=== PATIENT | female | born 1950 ===

== ENCOUNTER → 2017-11-05 | Outpatient (CLI) | payer MEDICARE, MEDICAID ==
[2017-05-20 10:28] VITALS: BMI 45.0
[~2017-11-05] MED LIST: ALB18R INH; ALBU8.5H IH; AMIO200T47 PO; AMOX1TAB8 PO; ATOR20TA65 PO; BENZ100C4 PO; CALC-515 PO; CARV25TA78 PO; CHOL10005 PO; DIPH0.5D12 IM; ESOM40CA42 PO; FLU60SYR30 IM ONLY; FLUT100D IH; FLUT1DIS27 IH; FLUT9.9S; FURO-45 PO; FURO20TA19 PO; GLUC100026 PO; GOLYTE PO; HYDR-4308 PO; HYDR12.556 PO; HYDR12.561 PO; Hospital Bed; IBUP200C74 PO; INSU100V24 SQ; LACT1CAP12 PO; LANI SUBQ; LEVI SUBQ; MELA5TAB6 PO; METF-410 PO; MOMR ENA; MULT-813 PO; MUPI15CR10 TP; OXYGENHOME INH; PANT20TA27 PO; PEN1DIS.48; PNEU0.5D3 IM; POLY17PO25 PO; POTA20TA94 PO; PRED-1 PO; PRED20TA6 PO; RIVA20TA PO; TIO18R INH; TRIA5T TOP; UMEC62.5 INH; VAL80 PO; VALS160T22 PO; VENL75CA4 PO; VENL75CA58 PO; [UNRECOGNIZED DRUG - OTHER]; [UNRECOGNIZED DRUG - OTHER] MC
== END ==
LOC: LAB 08:57
PROVIDERS: ATTEND Internal Medicine Cardiovascular Disease
DX: I42.0 Dilated cardiomyopathy (principal); E11.9 Type 2 diabetes mellitus without complications; E66.9 Obesity, unspecified
CPT/HCPCS: 36415; 82310; 82374; 82435; 82465; 82565; 82947; 83718; 84132; 84295; 84478; 84520

== ENCOUNTER → 2017-11-06 | Outpatient (CLI) | payer MEDICARE, MEDICAID ==
[2017-05-20 10:28] VITALS: BMI 45.0
--- NOTE | 2017-11-08 17:30 | RADIOLOGY IMAGING REPORT ---
FACILITY: [facility] [place] PATIENT NAME: KALIN CRAFT : [id number] MR: [id number] V: [id number] EXAM DATE: ORDERING PHYSICIAN: TERRA DRUMMOND TECHNOLOGIST: Godwin Easton PROCEDURE: ECHOCARDIOGRAM 2 D LIMITED WITH CONTRAST COMPARISON: None. INDICATIONS: NONISCHEMIC CARDIOMYOPATHY 2D Measurements (normal values in centimeters) LV endLV endRV endVent.LV PostAorticLeftPercent DiastolicSystolicDiastolicSeptumWallRootAtriumShortening (3.5-5.7)(0.9-2.6)(0.6-1.1)(0.6-1.1)(2.0-3.7)(1.9-4.0)(25-35%) NotNot [id number]% STROKE VOLUME: 38 mL ESTIMATED EJECTION FRACTION:37% PARASTERNAL LONG AXIS: Left ventricular systolic function appears to be decreased. The right ventricular function appears to be normal. The TAPSE is measured within normal range at 2.4. Color examination of the valves reveals a trace of mitral and tricuspid insufficiency present. PARASTERNAL SHORT AXIS: Overall left ventricular function again appears to be decreased. Some akinesis along the posterior inferior wall. Aortic valve was trileaflet in configuration and appears to open normally. Trace of tricuspid insufficiency is noted. APICAL FOUR AND TWO CHAMBER: Again, decreased left ventricular systolic function. Hypokinesis to akinesis along a portion of the interventricular septum as well as the apex of the left ventricle. Right atrial and left atrial volumes measure within normal ranges. DEFINITY contrast was then used. There was akinesis at the apex of the left ventricle, hypokinesis along the septal wall. There is also hypokinesis along the inferior posterior wall. Some akinesis along that wall as well. Doppler examination of the mitral valve in diastole does reveal the A wave greater than the E wave. OVERALL IMPRESSION: 1. Significantly decreased left ventricular ejection fraction of approximately 37%. There appears to be hypokinesis along the interventricular septum and akinesis along a portion of the inferior posterior wall and akinesis of the apex of the left ventricle. Anterior wall also appears to be hypokinetic 2. A grade 1/4 decrease in diastolic function. 3. A trace of mitral and tricuspid insufficiency with estimated right ventricular systolic pressure within normal range. 4. In comparison to the examination done on 08/21/17, left ventricular systolic function has slightly increased from 30 to 37%. Left ventricle size has also mildly decreased since that echocardiograph. Right atrial volume is also significantly decreased. Dictated by: Judson Brady M.D. on 11/06/2017 at 18:24 Transcribed by: FRANK on 11/06/2017 at 18:40 Approved by: Judson Brady M.D. on 11/08/2017 at 17:29 [facility]
== END ==
LOC: US 02:09
PROVIDERS: ATTEND Internal Medicine Clinical Cardiac Electrophysiology
DX: Q21.0 Ventricular septal defect (principal); I34.0 Nonrheumatic mitral (valve) insufficiency; I07.1 Rheumatic tricuspid insufficiency
CPT/HCPCS: C8924; Q9957

== ENCOUNTER → 2017-12-11 | Outpatient (CLI) | payer MEDICARE, MEDICAID ==
[2017-05-20 10:28] VITALS: BMI 45.0
[~2017-12-11] MED LIST changes: +DULO30CA6 PO; +VENL37.53 PO
[2017-12-11 11:39] LABS: PLATELET COUNT, AUTOMATED 250 K/uL (150-450)
[2017-12-11 11:56] LABS: LDL CHOLESTEROL 94 mg/dl
== END ==
LOC: LAB 11:11
PROVIDERS: ATTEND Nurse Practitioner Family
DX: I50.9 Heart failure, unspecified (principal); I25.10 Atherosclerotic heart disease of native coronary artery without angina pectoris; J44.9 Chronic obstructive pulmonary disease, unspecified; E11.9 Type 2 diabetes mellitus without complications
CPT/HCPCS: 36415; 82040; 82247; 82310; 82374; 82435; 82465; 82565; 82947; 83036; 83718; 83880; 84075; 84132; 84155; 84295; 84439; 84443; 84450; 84460; 84478; 84480; 84520; 85025

== ENCOUNTER → 2017-12-27 | Outpatient (CLI) | payer MEDICARE, MEDICAID ==
[2017-05-20 10:28] VITALS: BMI 45.0
--- NOTE | 2017-12-27 16:05 | RADIOLOGY IMAGING REPORT ---
FACILITY: [facility] PATIENT NAME: Umberto Elizondo : 1950 MR: [id number] V: [id number] EXAM DATE: ORDERING PHYSICIAN: VILMA TORREZ TECHNOLOGIST: Location: [facility] Patient: Umberto Elizondo : 1950 Visit/Account:[id number] Date of Sevice: 12/27/2017 DEXA Scan Clinical history: screening. Comparison: None. LUMBAR SPINE: The bone mineral density (BMD) measured from L1-L4 correlates with a Z-score of 1.2 and a T-score of 0.6 which is within normal limits as defined by the World Health Organization. The corresponding ris k of fracture in the lumbar spine is not increased compared with a young adult reference population. HIP: Bone mineral density (BMD) measured in the Left total hip region correlates with a Z-score of 1.1 and a T-score of 0.4. The T-score of the femoral neck is -0.7. The lower of the two T score s is within normal limits which is defined as defined by the World Health Organization. The corres ponding risk of fracture in the hip is not increased compared with a young adult reference population . Bone mineral density (BMD) measured in the Left Femoral Neck region measures 0.939 g/cm?. Impression: 1. Lumbar spine: Normal. 2. Left Total Hip: Normal. The next DEXA scan of this patient should include the following sites: L1-L4 and Left hip. FRAX? WHO Fracture Risk Assessment Tool link: <http://www.shef.ac.uk/FRAX/tool.jsp?locationValue=9> PLEASE NOTE: 1) The World Health Organization defines low BMD as follows: T-score Normal > -1 Osteopenia < -1 and > -2.5 Osteoporosis < -2.5 without fractures Established osteoporosis < -2.5 with fractures 2) In general, you may wish to consider: Diagnosis Treatment Follow-up DEXA Normal BMD Prevention 2-3 years Osteopenia Prevention/therapy 1-2 years Osteoporosis Therapy Yearly 3) Fracture risk estimated from the T-score is more accurate for vertebral fractures (often spontane ous) than for hip fractures. Report Dictated By: Go Yi MD at 12/27/2017 3:59 PM Report E-Signed By: Go Yi MD at 12/27/2017 4:01 PM WSN:[id number]
--- NOTE | 2017-12-27 16:25 | RADIOLOGY IMAGING REPORT ---
FACILITY: [facility] [place] PATIENT NAME: KALIN CRAFT : [id number] MR: [id number] V: [id number] EXAM DATE: [id number] ORDERING PHYSICIAN: VILMA TORREZ TECHNOLOGIST: Rachael Bell PROCEDURE:BILATERAL DIGITAL SCREENING MAMMOGRAM WITH CAD ASSISTED INTERPRETATION & 3D TOMOSYNTHESIS COMPARISON:Prior mammograms 01/14/16 INDICATIONS:SCREENING FINDINGS: Scattered fibroglandular tissue. Within the Left lower breast on MLO view 5.5cm deep to the nipple there is a new asymmetry. An equivocal correlative asymmetry just medial to the nipple line on the CC view at posterior depth. An alternative potential correlative asymmetry in the more inner Left breast at middle depth also noted on CC view. The breasts are otherwise unremarkable and unchanged. IMPRESSION: BIRADS 0: Needs additional imaging. Spot compression views Left breast, strait lateral view Left breast and Left breast Ultrasound as needed recommended for further evaluation. Dictated by: Bryce Mendieta on 12/27/2017 at 12:16 Transcribed by: ERIN on 12/27/2017 at 13:30 Approved by: Brcye Mendieta on 12/27/2017 at 16:24 [facility]
== END ==
LOC: MAMO 12-20 01:05
PROVIDERS: ATTEND Nurse Practitioner Family
DX: Z13.820 Encounter for screening for osteoporosis (principal); Z12.31 Encounter for screening mammogram for malignant neoplasm of breast; R92.8 Other abnormal and inconclusive findings on diagnostic imaging of breast; Z78.0 Asymptomatic menopausal state
CPT/HCPCS: 77063; 77067; 77080

== ENCOUNTER → 2018-01-16 | Outpatient (CLI) | payer MEDICARE, MEDICAID ==
[2017-05-20 10:28] VITALS: BMI 45.0
--- NOTE | 2018-01-17 14:01 | RADIOLOGY IMAGING REPORT ---
FACILITY: [facility] PATIENT NAME: KALIN CRAFT : [id number] MR: [id number] V: [id number] EXAM DATE: ORDERING PHYSICIAN: VILMA TORREZ TECHNOLOGIST: Bernarda Hernandez PROCEDURE:LEFT DIGITAL DIAGNOSTIC MAMMOGRAM WITH CAD ASSISTED INTERPRETATION & 3D TOMOSYNTHESIS COMPARISON:Prior mammograms 12/27/17, 01/14/16. INDICATIONS:FURTHER EVAL FINDINGS: Patient received a Spot compression view of Left CC and MLO projection and medial lateral view of the Left breast. The focal asymmetries seen in the inferior and medial portion of Left breast appear fairly compressible and apparently represented summation shadow. There was no demonstration of malignant appearing mass, or calcification Left breast. DIAGNOSTIC CATEGORY 2--BENIGN FINDING. RECOMMENDATIONS: ROUTINE MAMMOGRAM AND CLINICAL EVALUATION. IMPRESSION: BIRADS 2: Benign finding No significant abnormality is seen. Dictated by: Mile Griggs M.D. on 01/16/2018 at 17:10 Transcribed by: ERIN on 01/17/2018 at 9:49 Approved by: Mile Griggs M.D. on 01/17/2018 at 14:00 [facility]
== END ==
LOC: MAMO 01:00
PROVIDERS: ATTEND Nurse Practitioner Family
DX: R92.8 Other abnormal and inconclusive findings on diagnostic imaging of breast (principal)
CPT/HCPCS: 77065

== ENCOUNTER → 2018-04-03 | Outpatient (CLI) | payer MEDICARE, MEDICAID ==
[2017-05-20 10:28] VITALS: BMI 45.0
[~2018-04-03] MED LIST changes: +BENZ200C15 PO; +IPRA3AMP21 IH; -METF-410 PO; +METF-411 PO; +SYRI-1525 SM; +VARI50KI IM; +nebulizer
--- NOTE | 2018-04-03 14:43 | RADIOLOGY IMAGING REPORT ---
FACILITY: [facility] [place] PATIENT NAME: Umberto Elizondo : 1950 MR: [id number] V: [id number] EXAM DATE: ORDERING PHYSICIAN: TERRA RDUMMOND TECHNOLOGIST: Location: [facility] [place] Patient: Umberto Elizondo : 1950 Visit/Account:[id number] Date of Sevice: 04/03/2018 2 VIEWS CHEST INDICATION: Shortness of breath. Amiodarone therapy. COMPARISON: 06/25/2017. FINDINGS: Cardiomediastinal silhouette and pulmonary vessels within normal limits. Consideration to lungs and clearing of the pleural effusion on the right side. No focal area of conso lidation. There is no pneumothorax or pleural effusion. No nodule. Upper abdomen is unremarkable. Continued mild eventration left hemidiaphragm. No acute bony abnormali ty. IMPRESSION: 1. No acute cardiopulmonary process. Report Dictated By: Myles Mora at 04/03/2018 2:37 PM Report E-Signed By: Myles Mora at 04/03/2018 2:39 PM WSN:[id number]
== END ==
LOC: RAD 12:42
PROVIDERS: ATTEND Internal Medicine Clinical Cardiac Electrophysiology
DX: Z79.899 Other long term (current) drug therapy (principal)
CPT/HCPCS: 71046

== ENCOUNTER → 2018-04-03 | Outpatient (CLI) | payer MEDICARE, MEDICAID ==
[2017-05-20 10:28] VITALS: BMI 45.0
== END ==
LOC: LAB 12:40
PROVIDERS: ATTEND Nurse Practitioner Family
DX: I50.9 Heart failure, unspecified (principal); E11.9 Type 2 diabetes mellitus without complications; E78.5 Hyperlipidemia, unspecified; I10 Essential (primary) hypertension; R94.6 Abnormal results of thyroid function studies
CPT/HCPCS: 36415; 82040; 82247; 82310; 82374; 82435; 82465; 82565; 82947; 83036; 83718; 84075; 84132; 84155; 84295; 84439; 84443; 84450; 84460; 84478; 84480; 84520

== ENCOUNTER → 2018-05-06 | Outpatient (CLI) | payer MEDICARE, MEDICAID ==
[2017-05-20 10:28] VITALS: BMI 45.0
[~2018-05-06] MED LIST changes: -AMIO200T47 PO; +AMIO200T49 PO; +IPRA3AMP10 IH; -IPRA3AMP21 IH; +LEVO25TA61 PO; +SPIR25TA80 PO
== END ==
LOC: LAB 11:24
PROVIDERS: ATTEND Nurse Practitioner Family
DX: I10 Essential (primary) hypertension (principal)
CPT/HCPCS: 36415; 82310; 82374; 82435; 82565; 82947; 84132; 84295; 84520

== ENCOUNTER → 2018-05-24 | Outpatient (CLI) | payer MEDICARE, MEDICAID ==
[2017-05-20 10:28] VITALS: BMI 45.0
== END ==
LOC: LAB 10:38
PROVIDERS: ATTEND Internal Medicine Clinical Cardiac Electrophysiology
DX: Z51.81 Encounter for therapeutic drug level monitoring (principal); Z79.899 Other long term (current) drug therapy
CPT/HCPCS: 36415; 82040; 82247; 82248; 84075; 84155; 84443; 84450; 84460

== ENCOUNTER → 2018-06-21 | Outpatient (CLI) | payer MEDICARE, MEDICAID ==
[2017-05-20 10:28] VITALS: BMI 45.0
[~2018-06-21] MED LIST changes: +DULO60CA56 PO; +LEVO50TA86 PO; -METF-411 PO; +METF-450 PO; +ROSU5TAB3 PO
== END ==
LOC: LAB 09:08
PROVIDERS: ATTEND Nurse Practitioner Family
DX: E87.5 Hyperkalemia (principal); E11.9 Type 2 diabetes mellitus without complications; I10 Essential (primary) hypertension; E03.9 Hypothyroidism, unspecified
CPT/HCPCS: 36415; 82040; 82247; 82310; 82374; 82435; 82465; 82565; 82947; 83036; 83718; 84075; 84132; 84155; 84295; 84443; 84450; 84460; 84478; 84520

== ENCOUNTER → 2018-07-18 | Outpatient (CLI) | payer MEDICARE, MEDICAID ==
[2017-05-20 10:28] VITALS: BMI 45.0
[~2018-07-18] MED LIST changes: +FLU180SY11 IM
== END ==
LOC: LAB 15:21
PROVIDERS: ATTEND Nurse Practitioner Family
DX: I10 Essential (primary) hypertension (principal); I50.9 Heart failure, unspecified
CPT/HCPCS: 36415; 82310; 82374; 82435; 82565; 82947; 83880; 84132; 84295; 84520

== ENCOUNTER → 2018-09-19 | Outpatient (CLI) | payer MEDICARE, MEDICAID ==
[2017-05-20 10:28] VITALS: BMI 45.0
[~2018-09-19] MED LIST changes: -HYDR-4308 PO; +HYDR-654 PO
== END ==
LOC: LAB 15:12
PROVIDERS: ATTEND Nurse Practitioner Family
DX: M62.838 Other muscle spasm (principal)
CPT/HCPCS: 36415; 82040; 82247; 82310; 82374; 82435; 82565; 82947; 83735; 84075; 84132; 84155; 84295; 84450; 84460; 84520

== ENCOUNTER → 2018-12-23 | Outpatient (CLI) | payer MEDICARE, MEDICAID ==
[2017-05-20 10:28] VITALS: BMI 45.0
[2018-12-23 10:36] LABS: PLATELET COUNT, AUTOMATED 242 K/uL (150-450)
== END ==
LOC: LAB 10:05
PROVIDERS: ATTEND Nurse Practitioner Family
DX: E11.9 Type 2 diabetes mellitus without complications (principal); J44.9 Chronic obstructive pulmonary disease, unspecified; I50.9 Heart failure, unspecified; I10 Essential (primary) hypertension
CPT/HCPCS: 36415; 82040; 82247; 82310; 82374; 82435; 82565; 82947; 83036; 83880; 84075; 84132; 84155; 84295; 84443; 84450; 84460; 84520; 85025

== ENCOUNTER → 2019-03-27 | Outpatient (CLI) | payer MEDICARE, MEDICAID ==
[2017-05-20 10:28] VITALS: BMI 45.0
[~2019-03-27] MED LIST changes: +BARIUM SULFATE 176 GM BTL PO ONE; +BARIUM SULFATE 340 GM POWD ONE; -DIPH0.5D12 IM; +DIPH0.5S2 IM; +MELA5TAB3 PO; -MELA5TAB6 PO; +PANT40TA65 PO; +RANI150C17 PO
--- NOTE | 2019-03-27 13:10 | RADIOLOGY IMAGING REPORT ---
FACILITY: [facility] [place] PATIENT NAME: Umberto Elizondo : 1950 MR: [id number] V: [id number] EXAM DATE: ORDERING PHYSICIAN: JIMMIE BUCKLEY TECHNOLOGIST: Location: [facility] [place] Patient: Umberto Elizondo : 1950 Visit/Account:[id number] Date of Sevice: 03/27/2019 ESOPHAGRAM HISTORY: acid reflux, vomiting Air contrast esophagram. FINDINGS: There was normal pharyngeal and esophageal swallowing mechanism and motility with no esophageal mass lesions or mucosal abnormalities. There was a concentric narrowing of the distal esophagus at the GE junction. There was 6 mm circumferential narrowing which did result in impediment to passage of the barium pill which was seen at the GE junction for the entirety of the procedure after swallowing. T he recumbent position there was no gastroesophageal reflux noted. The barium pill may have limited d ue to a potential reflux. IMPRESSION: 1. Concentric narrowing of the distal to approximately 6 mm. Fluoroscopic time of 2.8 minutes. DAP [id number] Report Dictated By: Jimenez Choi MD at 03/27/2019 1:00 PM Report E-Signed By: Jimenez Choi MD at 03/27/2019 1:04 PM WSN:[email or web address]
== END ==
LOC: RAD 00:48
PROVIDERS: ATTEND Surgery
DX: K21.9 Gastro-esophageal reflux disease without esophagitis (principal); R11.10 Vomiting, unspecified
CPT/HCPCS: 74220

== ENCOUNTER → 2019-04-07 | Outpatient (CLI) | payer MEDICARE, MEDICAID ==
[2017-05-20 10:28] VITALS: BMI 45.0
[~2019-04-07] MED LIST changes: -BARIUM SULFATE 176 GM BTL PO ONE; -BARIUM SULFATE 340 GM POWD ONE; +RANI15SY19 PO
[2019-04-07 11:01] LABS: PLATELET COUNT, AUTOMATED 214 K/uL (150-450)
== END ==
LOC: LAB 10:32
PROVIDERS: ATTEND Surgery
DX: J44.9 Chronic obstructive pulmonary disease, unspecified (principal); I50.9 Heart failure, unspecified; I48.2 Chronic atrial fibrillation; E11.9 Type 2 diabetes mellitus without complications
CPT/HCPCS: 36415; 82310; 82374; 82435; 82565; 82947; 83036; 84132; 84295; 84520; 85025

== ENCOUNTER 2019-05-21 02:07 | Day surgery (SDC) | payer MEDICARE, MEDICAID ==
[2017-05-20 10:28] VITALS: Ht 160 cm; Wt 107.5 kg
[~2019-05-21] VITALS: Ht 160 cm; Wt 107.5 kg
[~2019-05-21 02:07] MED LIST changes: +RANI-54 PO
[2019-05-21 08:30] VITALS: BP 102/72
[2019-05-21] MEDS ORDERED: NORMOSOL R SOLN(*) 1000 ML BAG 1,000 ML IV PRN (09:00)
[2019-05-21] MEDS ORDERED: LIDOCAINE/SOD BICARB 8.4% SYR ID ONE (09:00)
--- NOTE | 2019-05-21 11:03 | Short(Outpt) Discharge Summary ---
Discharge Summary Reason for Hosp/Final Diag: (1) Dysphagia Status: Chronic Hospital Course & Plan: EGD with biopsies and dilation of esophagus completed without problems. (2) Regurgitation of food Status: Chronic Departure Discharge to: Home, Self Care Discharge Instructions Home Meds Active Scripts Syringe & Needle,Insulin,1 Ml (INSULIN SYRINGE) 1 Each Disp.syrin, BOX SM 5XD, #5 2 Refills use one syringe with insulin five times daily Relion ins syr 0.3/31g8mm mis BEVERLY: 99mo Prov:VILMA TORREZ APRNP-C 05/19/19 Hydrocodone Bit/Acetaminophen (NORCO 7.5-325 TABLET) 1 Each Tablet, 1 EACH PO TID PRN for pain, #90 TAB 0 Refills Prov:VILMA TORREZ APRN-C 05/16/19 Duloxetine Hcl (CYMBALTA) 60 Mg Capsule.dr, 1 TAB PO DAILY, #90 TAB 1 Refill Prov:VILMA TORREZ APRN-C 03/17/19 Pantoprazole Sodium (PANTOPRAZOLE SODIUM) 40 Mg Tablet.dr, 1 TAB PO DAILY, #60 TAB 6 Refills Prov:JIMMIE BUCKLEY MD 03/10/19 [True Track Strips] No Conflict Check, [facility] QID, #400 3 Refills Test 4 times a day for Type 2 DM requiring INSULIN, long-term Prov:VILMA TORREZ APRN-C 03/04/19 Carvedilol (CARVEDILOL) 25 Mg Tablet, 1 TAB PO BID, #180 TAB 1 Refill Prov:VILMA TORREZ APRN-C 02/20/19 Rivaroxaban 20 Mg (XARELTO 20 MG) 20 Mg Tablet, 1 TAB PO DAILY, #90 TAB 1 Refill Prov:VILMA TORREZ APRN-C 02/20/19 Furosemide (LASIX) 20 Mg Tablet, 1 TAB PO DAILY PRN for edema for 30 Days, #90 TAB 1 Refill Prov:VILMA TORREZ APRNP-C 02/20/19 Albuterol Sulfate 90 Mcg/Act (PROAIR HFA 90 MCG/ACT) 8.5 Gm Hfa.aer.ad, 2 PUFF IH Q4-6H, #1 INHALER 1 Refill Prov:VILMA TORREZ APRN-Rea 02/20/19 Levothyroxine Sodium (LEVOTHYROXINE SODIUM) 50 Mcg Tablet, 1 TAB PO DAILY, #90 TAB 1 Refill Prov:VILMA TORREZ APRN-Rea 12/27/18 Insulin Lispro 100 Un/Ml Vial (HUMALOG 100 U/ML VIAL) 100 Unit/1 Ml Vial, 18 UNIT SQ TIDCF, #6 VIAL 3 Refills Prov:KACI ALVARADO PHARMD 05/01/18 Insulin Glargine (LANTUS) 100 Unit/Ml Soln, 42 UNIT SUBQ BID, #9 VIAL 3 Refills Prov:KACI ALVARADO PHARMAlcon 05/01/18 [rollator] No Conflict Check, EACH, #1 0 Refills Prov:VILMA TORREZ APRN-Rea 09/14/17 [Hospital Bed] No Conflict Check, EACH, #1 Prov:VILMA TORREZ APRN-Rea 07/05/17 Pen Needle, Diabetic (Insulin Pen Needle) 31 Gauge X 1/6" Dis.needle, EACH BID, #20 0 Refills Use with insulin pen to administer lantus insulin twice daily Prov:VILMA TORREZ APRN-Rea 07/05/17 Reported Medications Ranitidine Hcl (ZANTAC) 150 Mg Tablet, 150 MG PO DAILY, TAB 05/14/19 Multivitamin (CHEWABLE-AXEL) 1 Each Tab.chew, 1 EACH PO DAILY, TAB.CHEW 08/09/17 Fluticasone/Salmeterol (ADVAIR 100-50 DISKUS) 1 Each Disk.w.dev, 1 EACH IH DAILY 08/09/17 Amiodarone Hcl (AMIODARONE HCL) 200 Mg Tablet, 1 TAB PO DAILY 08/09/17 Oxygen (OXYGEN) Inha, 2 L INH continuous, L 01/08/17 Calcium Carbonate (TUMS) 200 Mg Tab.chew, 1 TAB PO PRN, TAB.CHEW 10/20/16 Melatonin (MELATONIN) 5 Mg Tablet, 5 MG PO QHS PRN for INSOMNIA 10/20/16 Discontinued Reported Medications Cholecalciferol (Vitamin D3) (VITAMIN D3) Unknown Strength Tablet, 1000 UNIT PO DAILY, TAB 01/13/16 Discontinued Scripts Varicella-Zoster Ge/As01b/Pf (Shingrix Vial Kit) 50 Mcg/0.5 Ml Kit, 0.5 ML IM ONCE, #1 EACH 1 Refill Prov:SHARIARNULFOVILMA LUCINA SHEEHANP-C 04/07/19 Ranitidine Hcl 15 Mg/Ml Syr (RANITIDINE HCL 15 MG/ML SYR) 15 Mg/1 Ml Syrup, 20 ML PO QHS, #600 ML 2 Refills Prov:VILMA TORREZ APRNP-C 04/07/19 Amiodarone Hcl (AMIODARONE HCL) 200 Mg Tablet, 200 MG PO DAILY for 30 Days, #30 TAB 0 Refills Prov:VILMA TORREZ APRN-C 02/14/19 [nebulizer] No Conflict Check Prov:VILMA TORREZ APRNP-C 01/31/18 Diet: Regular Activity: As Tolerated Special Instructions: Your upper endoscopy was completed without problems. I biopsied your stomach and duodenum and dilated your esophagus. My office will call you in the next day or two to schedule a follow up appointment for you to see me in the office to discuss these results, see how your symptoms are, and see if there's anything else that we need to do for you. Problem Qualifiers (1) Dysphagia: Dysphagia type: esophageal phase Qualified Codes: R13.10 - Dysphagia, unspecified JIMMIE BUCKLEY MD May 21, 2019 11:03
[2019-05-21 11:10] VITALS: BP 123/80
--- NOTE | 2019-05-21 11:20 | NUR ---
patient requested water and pepsi. will continue to monitor
--- NOTE | 2019-05-21 11:25 | NUR ---
patient supplemental oxygen reduced to 5 L/min via NC. patient was coughing and moving oxymask. changing to NC has helped. patient oxygen saturation has been at 96% since the change. and is much more comfortable with the NC. will continue to monitor and assess.
--- NOTE | 2019-05-21 11:30 | NUR ---
patient coughing up phlegm. education on the benefit of coughing and expelling secretions. Secretions are clear in color and viscus. will continue to monitor
--- NOTE | 2019-05-21 11:37 | NUR ---
patient supplemental oxygen decreased to 3.5 L/min. tolerating well. maintaining O2 sat at 96%. no increase to pulse or respirations. will continue to monitor.
[2019-05-21 11:38] VITALS: BP 113/75
[2019-05-21] MEDS ORDERED: APAP/HYDROCODONE 325/7.5 TAB PO ONE (11:55)
--- NOTE | 2019-05-21 11:55 | NUR ---
patient supplemental oxygen reduced to 2.5 L/min via nasal canula. which is her baseline. saturation maintaining at 95%, pulse 68 bpm, respiration is 20/min. will continue to monitor
[2019-05-21 12:00] VITALS: BP 122/85
--- NOTE | 2019-05-21 12:00 | NUR ---
Patient no longer coughing. will continue to monitor.
[2019-05-21 12:20] VITALS: BP 129/90
[2019-05-21 12:21] VITALS: BP 118/90
--- NOTE | 2019-05-21 12:25 | NUR ---
Patient up to the bathroom. able to ambulate with walker. tolerated well. no dip in O2 sats upon return.
--- NOTE | 2019-05-21 12:50 | NUR ---
patient walked out with dog and son.
== END 2019-05-21 12:50 | disposition home or self-care (01) ==
LOC: OR 02:07
PROVIDERS: ATTEND Surgery
DX: K29.80 Duodenitis without bleeding (principal); E11.9 Type 2 diabetes mellitus without complications
CPT/HCPCS: 36416; 43239; 43248; 82948; 87077; 88305; A9270; C1769